=== PATIENT | male | born 1970 | race Hispanic/Latino ===

== ENCOUNTER → 2017-10-28 | Outpatient (CLI) | payer OTHER ==
[~2017-10-28] MED LIST: ASPIR 8181 MG PO; ATORVASTATIN CA20 MG PO; DIATRIZOATE MEGL/DIATRIZOA SOD 30 ML BTL PO ONE; IOPAMIDOL 370 MG/ML 200 ML INFUS..BTL INJ ONE; METOPROLOL SUCC25 MG PO; SODIUM CHLORIDE 0.9% 50ML 50 ML ONE
[2017-10-28 17:30] LABS: BLOOD UREA NITROGEN 17 mg/dL (7-26); BUN/CREATININE RATIO 17 (6-25); CREATININE, SERUM 0.98 mg/dL (0.72-1.25); EST GLOMERULAR FILTRATION RATE > 60 ML/MIN (60-)
--- NOTE | 2017-10-30 17:20 | Diagnostic Imaging Report ---
PROCEDURE: CT ABDOMEN AND PELVIS WITH CONTRAST, ENTEROGRAPHY PROTOCOL TECHNIQUE: The abdomen and pelvis were scanned utilizing a multidetector helical scanner from the diaphragm to the lesser trochanter after the IV administration of 100 cc of Isovue 370 and the oral administration of Volumen. Enterography protocol was performed. Coronal and sagittal multiplanar reformations were obtained. COMPARISON: None. INDICATIONS: COLITIS FINDINGS: LOWER THORAX: Normal. HEPATOBILIARY: No focal hepatic lesions. No biliary ductal dilatation. SPLEEN: No splenomegaly. PANCREAS: No focal masses or ductal dilatation. ADRENALS: No adrenal nodules. KIDNEYS/URETERS: No hydronephrosis, stones, or solid mass lesions. PELVIC ORGANS/BLADDER: Unremarkable. PERITONEUM / RETROPERITONEUM: No free air or fluid. LYMPH NODES: No lymphadenopathy. A few mesorectal lymph nodes measuring up to 6 mm are nonspecific. VESSELS: Mild atherosclerotic calcifications of the aorta and its branches. GI TRACT: No evidence of abnormal distention, enhancement, or wall thickening. No evidence of bowel obstruction. Mild rectal wall thickening (series 3, image 154) may be an artifact due to peristalsis. Otherwise no CT evidence of colitis No fistula, sinus tract, or abscess. The terminal ileum is visualized and is unremarkable. There is a moderate amount of stool throughout the colon. The appendix is normal. BONES AND SOFT TISSUES: Unremarkable. IMPRESSION: 1. Mild rectal wall thickening which may be an artifact due to peristalsis. Correlate clinically. 2. Otherwise no CT evidence of colitis. The small bowel is unremarkable with no evidence of acute bowel inflammation. Dictated by: Cruz Woodson M.D. on 10/30/2017 at 17:28 Electronically approved by: Cruz Woodson M.D. on 10/30/2017 at 17:28
== END ==
LOC: CT 16:36
PROVIDERS: ATTEND Internal Medicine Gastroenterology
DX: K52.9 Noninfective gastroenteritis and colitis, unspecified (principal)
CPT/HCPCS: 36415; 74177; 82565; 84520; Q9967